=== PATIENT | female | born 1985 | race Caucasian/White ===

== ENCOUNTER 2018-06-02 02:08 | Inpatient (IN) | payer BC ==
[2018-06-02] MEDS ORDERED: Lidocaine 1% 50 ML MDV INJECT PRN (02:30)
[2018-06-02] MEDS ORDERED: Butorphanol 1 MG/ML SDV IVPUSH PRN (02:30)
[2018-06-02] MEDS ORDERED: Oxytocin/0.9 % Sodium Chloride 30 UNIT/500 ML BAG IV SCH (02:30)
[2018-06-02] MEDS ORDERED: Sodium Chloride 0.9% 2.5 ML Syringe FLUSH PRN (02:30)
[2018-06-02] MEDS ORDERED: Tranexamic Acid 1,000 MG in Sodium Chloride 0.9% 100 ML IV PRN (02:30)
[2018-06-02] MEDS ORDERED: Misoprostol 200 MCG Tab PO PRN (02:30)
[2018-06-02] MEDS ORDERED: Lactated Ringers 1,000 ML IV SCH (02:30)
[2018-06-02] MEDS ORDERED: Methylergonovine 0.2 MG/1 ML Amp IM PRN (02:30)
[2018-06-02] MEDS ORDERED: Sodium Chloride 0.9% 10 ML Syringe FLUSH PRN (02:30)
[2018-06-02] MEDS ORDERED: Water For Irrigation,Sterile 1,000 ML Container IRR PRN (02:30)
[2018-06-02] MEDS ORDERED: Carboprost Tromethamine 250 MCG/1 ML Amp IM PRN (02:30)
[2018-06-02] MEDS ORDERED: Nalbuphine 10 MG/1 ML Vial IVPUSH PRN (02:30)
--- NOTE | 2018-06-02 03:46 | PCM.DEL ---
L & D Note - General Info Date of Service: 06/02/18 Mother's Due Date: 06/21/18 - Delivery Note Labor: Spontaneous Delivery Outcome: Livebirth Infant Delivery Method: Spontaneous Vaginal Delivery-Single Presentation: Right Occiput Anterior (ADEOLA) Nuchal Cord: None Anesthesia Type: Local Anesthetic: Lidocaine (Xylocaine) 1% Plain Local Anesthetic Volume: 3cc Amniotic Fluid Description: Clear Episiotomy Type: None Laceration: 2nd Degree Suture type: Other (monocyrl 2.0) Suture size: 2-0 Placenta: Intact Cord: 3 Vessels Estimated Blood Loss: 200 Hawley: Bulb Syringe Score 1 min: 9 Score 5 min: 9 Delivery Comments (Free Text/Narrative):: Live female delivered at 258am , 9/9 weight 2900 , 3VC - General Info Date of Service: 06/02/18 - Patient Data Weight - Most Recent: 63.049 kg Lab Results Last 24 Hours: Laboratory Results - last 24 hr 06/02/18 06/02/18 Range/Units 02:43 02:43 WBC 6.99 (4.0-11.0) K/uL RBC 4.26 L (4.30-5.90) M/uL Hgb 12.1 (12.0-16.0) g/dL Hct 36.9 (36.0-46.0) % MCV 86.6 (80.0-98.0) fL MCH 28.4 (27.0-32.0) pg MCHC 32.8 (31.0-37.0) g/dL RDW Std Deviation 36.6 (28.0-62.0) fl RDW Coeff of Chele 12 (11.0-15.0) % Plt Count 141 L (150-400) K/uL MPV 11.50 (7.40-12.00) fL Blood Type A NEGATIVE Antibody Screen NEGATIVE Med Orders - Current: Current Medications Butorphanol Tartrate (Stadol) 1 mg IVPUSH Q1H PRN PRN Reason: Pain Carboprost Tromethamine (Hemabate Ds) 250 mcg IM ASDIRECTED PRN PRN Reason: Post Hemorrhage Lactated Ringer's (Ringers, Lactated) 1,000 mls @ 150 mls/hr IV ASDIRECTED DEANDRE Oxytocin/Sodium Chloride (Oxytocin 30 Unit/500 Ml-Ns) 30 unit in 500 mls @ 999 mls/hr IV TITRATE DEANDRE Last Admin: 06/02/18 03:01 Dose: 500 mls/hr Tranexamic Acid 1,000 mg/ (Sodium Chloride) 110 mls @ 660 mls/hr IV ONETIME PRN PRN Reason: Bleeding Lidocaine HCl (Xylocaine 1%) 50 ml INJECT ONETIME PRN PRN Reason: Laceration repair Last Admin: 06/02/18 02:58 Dose: 50 ml Methylergonovine Maleate (Methergine) 0.2 mg IM ASDIRECTED PRN PRN Reason: Post Hemorrhage Misoprostol (Cytotec) 200 mcg PO ONETIME PRN PRN Reason: Post Hemorrhage Nalbuphine HCl (Nubain) 10 mg IVPUSH Q1H PRN PRN Reason: Pain (severe 7-10) Sodium Chloride (Saline Flush) 10 ml FLUSH ASDIRECTED PRN PRN Reason: Keep Vein Open Sodium Chloride (Saline Flush) 2.5 ml FLUSH ASDIRECTED PRN PRN Reason: Keep Vein Open Sterile Water (Sterile Water For Irrigation) 1,000 ml IRR ASDIRECTED PRN PRN Reason: delivery Last Admin: 06/02/18 02:58 Dose: 1,000 ml - Problem List & Annotations (1) Vaginal delivery SNOMED Code(s): 657846709 Code(s): O80 - ENCOUNTER FOR FULL-TERM UNCOMPLICATED DELIVERY Status: Acute Current Visit: Yes - Problem List Review Problem List Initiated/Reviewed/Updated: Yes - My Orders Last 24 Hours: My Active Orders 06/02/18 02:13 Non Stress Test [RC] PER UNIT ROUTINE Up ad Barbi [RC] ASDIRECTED Vaginal Exam [RC] Click to Edit Vital Signs [RC] PER UNIT ROUTINE Resuscitation Status Routine 06/02/18 02:27 Patient Status [ADT] Routine 06/02/18 02:30 Heart Tones [RC] CONTINUOUS Non Stress Test [RC] PER UNIT ROUTINE May Shower [RC] ASDIRECTED Notify Provider [RC] PRN Up ad Barbi [RC] ASDIRECTED Vaginal Exam [RC] PRN Vital Signs [RC] PER UNIT ROUTINE Butorphanol [Stadol] 1 mg IVPUSH Q1H PRN Carboprost Tromethamine [Hemabate DS] 250 mcg IM ASDIRECTED PRN Lactated Ringers [Ringers, Lactated] 1,000 ml IV ASDIRECTED Lidocaine 1% [Xylocaine 1%] 50 ml INJECT ONETIME PRN Methylergonovine [Methergine] 0.2 mg IM ASDIRECTED PRN Nalbuphine [Nubain] 10 mg IVPUSH Q1H PRN Oxytocin/0.9 % Sodium Chloride [Oxytocin 30 Unit/500 ML-NS] 30 unit in 500 ml IV TITRATE Sodium Chloride 0.9% [Saline Flush] 10 ml FLUSH ASDIRECTED PRN Sodium Chloride 0.9% [Saline Flush] 2.5 ml FLUSH ASDIRECTED PRN Tranexamic Acid [Cyklokapron] 1,000 mg Sodium Chloride 0.9% [Normal Saline] 100 ml IV ONETIME Water For Irrigation,Sterile [Sterile Water for Irrigation] 1,000 ml IRR ASDIRECTED PRN miSOPROStol [Cytotec] 200 mcg PO ONETIME PRN Scalp Electrode [WOMSER] Per Unit Routine Peripheral IV Insertion Adult [OM.PC] Routine
[2018-06-02] MEDS ORDERED: Acetaminophen 500 MG Tab PO PRN ×2 (11:23→11:24)
[2018-06-02] MEDS ORDERED: Ibuprofen 400 MG Tab PO PRN (11:25)
[2018-06-02] MEDS: Ibuprofen 800 MG Tab PO PRN ×2 (11:44→23:39)
--- NOTE | 2018-06-02 17:51 | OR ---
SURGEON: GILBERT STEPHENS DATE OF PROCEDURE: 06/02/2018 PROCEDURE: Normal spontaneous vaginal delivery and repair of second-degree laceration. ANESTHESIA: None. ESTIMATED BLOOD LOSS: 200. FINDINGS: Live female delivered at 7:58 a.m. score was 9 and 9. Weight was 2900 g. BRIEF HISTORY ABOUT PATIENT: She is a 32-year-old G4, P3-0-0-3, at 37 weeks 2/7 days who came in complaining of contractions. When she came in she was found to be 7/100/ -1. She made normal labor progress. The patient became fully dilated and pushed. DESCRIPTION OF PROCEDURE: The patient was to push, she was encouraged to push. She delivered the head, followed subsequently by the anterior and posterior shoulder and the body of the infant was delivered. Delayed cord clamping was observed. The cord was clamped and cut. The placenta was delivered via controlled cord traction. The perineum was inspected and was noted to have second-degree laceration. Laceration was repaired with 2-0 Monocryl in a continuous fashion. Inspection of the perineum showed intact perineum. The patient was left in Labor and Delivery in stable condition. SHANI POSEY /[id number] MTDTim
[2018-06-02] MEDS ORDERED: Docusate Sodium 100 MG Cap PO PRN (23:38)
--- NOTE | 2018-06-03 08:17 | PCM.PNPP ---
<Angelica Owens - Last Filed: 06/03/18 08:13> - General Info Date of Service: 06/03/18 Functional Status: Reports: Pain Controlled, Tolerating Diet, Ambulating, Urinating - Review of Systems General: Denies: Fever, Weakness, Fatigue Pulmonary: Denies: Shortness of Breath, Pleuritic Chest Pain, Cough Cardiovascular: Denies: Chest Pain, Palpitations, Dyspnea on Exertion Gastrointestinal: Denies: Abdominal Pain Genitourinary: Denies: Dysuria - General Info Date of Service: 06/03/18 - Patient Data Vital Signs - Most Recent: Last Vital Signs Temp 36.4 C 06/03/18 04:00 Pulse 88 06/03/18 07:00 Resp 16 06/03/18 07:00 BP 101/63 06/03/18 07:00 Pulse Ox 100 06/03/18 07:00 Weight - Most Recent: 63.049 kg Lab Results - Last 24 Hours: Laboratory Results - last 24 hr 06/02/18 Range/Units 02:58 Cord VBG pH 7.496 H (7.25-7.45) Cord VBG Base Excess -2 (-10--2) Med Orders - Current: Current Medications Acetaminophen (Tylenol Extra Strength) 500 mg PO Q6H PRN PRN Reason: Pain Acetaminophen (Tylenol Extra Strength) 1,000 mg PO Q6H PRN PRN Reason: Pain Carboprost Tromethamine (Hemabate Ds) 250 mcg IM ASDIRECTED PRN PRN Reason: Post Hemorrhage Docusate Sodium (Colace) 100 mg PO BID PRN PRN Reason: Constipation Last Admin: 06/02/18 23:41 Dose: 100 mg Oxytocin/Sodium Chloride (Oxytocin 30 Unit/500 Ml-Ns) 30 unit in 500 mls @ 999 mls/hr IV TITRATE DEANDRE Last Admin: 06/02/18 03:01 Dose: 500 mls/hr Tranexamic Acid 1,000 mg/ (Sodium Chloride) 110 mls @ 660 mls/hr IV ONETIME PRN PRN Reason: Bleeding Ibuprofen (Motrin) 400 mg PO Q6H PRN PRN Reason: Pain Ibuprofen (Motrin) 800 mg PO Q6H PRN PRN Reason: Pain Last Admin: 06/02/18 23:39 Dose: 800 mg Misoprostol (Cytotec) 200 mcg PO ONETIME PRN PRN Reason: Post Hemorrhage Sodium Chloride (Saline Flush) 10 ml FLUSH ASDIRECTED PRN PRN Reason: Keep Vein Open Sodium Chloride (Saline Flush) 2.5 ml FLUSH ASDIRECTED PRN PRN Reason: Keep Vein Open Sterile Water (Sterile Water For Irrigation) 1,000 ml IRR ASDIRECTED PRN PRN Reason: delivery Last Admin: 06/02/18 02:58 Dose: 1,000 ml Discontinued Medications Butorphanol Tartrate (Stadol) 1 mg IVPUSH Q1H PRN PRN Reason: Pain Lactated Ringer's (Ringers, Lactated) 1,000 mls @ 150 mls/hr IV ASDIRECTED DEANDRE Lidocaine HCl (Xylocaine 1%) 50 ml INJECT ONETIME PRN PRN Reason: Laceration repair Last Admin: 06/02/18 02:58 Dose: 50 ml Methylergonovine Maleate (Methergine) 0.2 mg IM ASDIRECTED PRN PRN Reason: Post Hemorrhage Nalbuphine HCl (Nubain) 10 mg IVPUSH Q1H PRN PRN Reason: Pain (severe 7-10) - Interaction Disposition, : [place] in Room with Family Support Person: - Recovery Exam Fundal Tone: Firm Fundal Level: 1 Fingerbreadths Below Umbilicus Fundal Placement: Midline Lochia Amount: Scant Lochia Color: Rubra/Red Perineum Description: Intact, Minimal Bruising/Swelling Other Perinuem Description: 2nd degree laceration with repair Episiotomy/Laceration: Approximated Bladder Status: Voiding Urinary Elimination: Voided - Exam General: Alert, Oriented Neck: Supple Lungs: Clear to Auscultation, Normal Respiratory Effort Cardiovascular: Regular Rate, Regular Rhythm GI/Abdominal Exam: Normal Bowel Sounds, Soft, Non-Tender, No Distention Extremities: Normal Inspection, Non-Tender, Normal Capillary Refill, Pedal Edema (trace) Skin: Warm, Dry, Intact - Problem List Review Problem List Initiated/Reviewed/Updated: Yes - Assessment Assessment:: PPD #1 s/p . Minimal pain and lochia. Breast feeding well. Discharge home today. - Plan Plan:: Discharge home today. Pelvic rest for 6 weeks. Continue PNV while breast feeding. Can use OTC ibuprofen/tylenol as needed for pain. Instructed patient to call if she develops fever greater than 101 or bleeding through a large pad an hour. F/U with [facility] in 6 weeks. <Gina Castanon - Last Filed: 06/03/18 09:03> - Patient Data Vital Signs - Most Recent: Last Vital Signs Temp 36.4 C 06/03/18 04:00 Pulse 88 06/03/18 07:00 Resp 16 06/03/18 07:00 BP 101/63 06/03/18 07:00 Pulse Ox 100 06/03/18 07:00 Lab Results - Last 24 Hours: Laboratory Results - last 24 hr 06/02/18 Range/Units 02:58 Cord VBG pH 7.496 H (7.25-7.45) Cord VBG Base Excess -2 (-10--2) Med Orders - Current: Current Medications Acetaminophen (Tylenol Extra Strength) 500 mg PO Q6H PRN PRN Reason: Pain Acetaminophen (Tylenol Extra Strength) 1,000 mg PO Q6H PRN PRN Reason: Pain Carboprost Tromethamine (Hemabate Ds) 250 mcg IM ASDIRECTED PRN PRN Reason: Post Hemorrhage Docusate Sodium (Colace) 100 mg PO BID PRN PRN Reason: Constipation Last Admin: 06/02/18 23:41 Dose: 100 mg Oxytocin/Sodium Chloride (Oxytocin 30 Unit/500 Ml-Ns) 30 unit in 500 mls @ 999 mls/hr IV TITRATE DEANDRE Last Admin: 06/02/18 03:01 Dose: 500 mls/hr Tranexamic Acid 1,000 mg/ (Sodium Chloride) 110 mls @ 660 mls/hr IV ONETIME PRN PRN Reason: Bleeding Ibuprofen (Motrin) 400 mg PO Q6H PRN PRN Reason: Pain Ibuprofen (Motrin) 800 mg PO Q6H PRN PRN Reason: Pain Last Admin: 06/02/18 23:39 Dose: 800 mg Misoprostol (Cytotec) 200 mcg PO ONETIME PRN PRN Reason: Post Hemorrhage Sodium Chloride (Saline Flush) 10 ml FLUSH ASDIRECTED PRN PRN Reason: Keep Vein Open Sodium Chloride (Saline Flush) 2.5 ml FLUSH ASDIRECTED PRN PRN Reason: Keep Vein Open Sterile Water (Sterile Water For Irrigation) 1,000 ml IRR ASDIRECTED PRN PRN Reason: delivery Last Admin: 06/02/18 02:58 Dose: 1,000 ml Discontinued Medications Butorphanol Tartrate (Stadol) 1 mg IVPUSH Q1H PRN PRN Reason: Pain Lactated Ringer's (Ringers, Lactated) 1,000 mls @ 150 mls/hr IV ASDIRECTED DEANDRE Lidocaine HCl (Xylocaine 1%) 50 ml INJECT ONETIME PRN PRN Reason: Laceration repair Last Admin: 06/02/18 02:58 Dose: 50 ml Methylergonovine Maleate (Methergine) 0.2 mg IM ASDIRECTED PRN PRN Reason: Post Hemorrhage Nalbuphine HCl (Nubain) 10 mg IVPUSH Q1H PRN PRN Reason: Pain (severe 7-10) - Problem List & Annotations (1) Vaginal delivery SNOMED Code(s): 005417739 Code(s): O80 - ENCOUNTER FOR FULL-TERM UNCOMPLICATED DELIVERY Status: Acute Current Visit: Yes - Problem List Review Problem List Initiated/Reviewed/Updated: Yes - Assessment Assessment:: Patient was seen and examined by me and I agree with above.
== END 2018-06-03 10:40 | disposition home or self-care (01) | DRG 560 ==
LOC: MW.OBCHECK 02:08 → MW.OB 02:10 → MW.OBCHECK 02:27 → MW.OB 02:27 → OBSVTOIN 02:58
PROVIDERS: ADMIT Obstetrics & Gynecology; ATTEND Obstetrics & Gynecology
PROC: 10E0XZZ Delivery of Products of Conception, External Approach (ICD-10-PCS; principal; 2018-06-02)
PROC: 0KQM0ZZ Repair Perineum Muscle, Open Approach (ICD-10-PCS; 2018-06-02)
DX: O70.1 Second degree perineal laceration during delivery (principal); Z3A.37 37 weeks gestation of pregnancy; Z37.0 Single live birth
CPT/HCPCS: 36415; 59025; 59409; 82803; 85027; 86850; 86900; 86901; A9270-GY; J2590

== ENCOUNTER 2018-10-24 17:49 | Emergency (ER) | payer BC ==
--- NOTE | 2018-10-24 18:44 | CR ---
Indication: Pain after fall Technique: Right elbow 3 views Comparison: None Findings: Bones: Alignment is normal. No fractures or bone lesions. Joint spaces: Unremarkable. No sign of joint effusion. Soft tissues: Dorsal soft tissue swelling. Impression: Dorsal soft tissue swelling without evidence of fracture or elbow effusion. Dictated by Sivakumar Calix MD @ Oct 24 2018 6:42PM Signed by Dr. Sivakumar Calix @ Oct 24 2018 6:43PM
--- NOTE | 2018-10-24 18:48 | EDM.PDOC ---
ED HPI GENERAL MEDICAL PROBLEM - General Chief Complaint: Upper Extremity Injury/Pain Stated Complaint: FELL DOWN STAIRS AND HURT R ELBOW Time Seen by Provider: 10/24/18 18:05 Source of Information: Reports: Patient History Limitations: Reports: No Limitations - History of Present Illness INITIAL COMMENTS - FREE TEXT/NARRATIVE: HISTORY AND PHYSICAL: History of present illness: Patient is a 32-year-old female who fell landing on her right elbow approximately 4 hours prior to arrival. She states she has noticed some soft tissue swelling and bruising and was concerned she may have a fracture. She denies hitting her head or any loss of consciousness. She does have range of motion although this does cause pain. Denies any numbness or tingling to the distal extremity. Review of systems: As per history of present illness and below otherwise all systems reviewed and negative. Past medical history: As per history of present illness and as reviewed below otherwise noncontributory. Surgical history: As per history of present illness and as reviewed below otherwise noncontributory. Social history: See social history for further information Family history: As per history of present illness and as reviewed below otherwise noncontributory. Physical exam: General: Well-developed and well-nourished 32-year-old female. Alert and oriented. Nontoxic appearing and in no acute distress. HEENT: Atraumatic, normocephalic, pupils equal and reactive bilaterally, negative for conjunctival pallor or scleral icterus, mucous membranes moist, TMs normal bilaterally, throat clear, neck supple, nontender, trachea midline. No drooling or trismus noted. No meningeal signs. No hot potato voice noted. Lungs: Clear to auscultation, breath sounds equal bilaterally, chest nontender. Heart: S1S2, regular rate and rhythm without overt murmur Abdomen: Soft, nondistended, nontender. Negative for masses or hepatosplenomegaly. Negative for costovertebral tenderness. Pelvis: Stable nontender. Genitourinary: Deferred. Rectal: Deferred. Skin: Intact, warm, dry. No lesions or rashes noted. Extremities: Moves all extremities per self without difficulty or deficits, mild pain with palpation of the right elbow with mild soft tissue swelling, strong radial pulse, strong and equal grasps bilaterally. Neurovascular unremarkable. Neuro: Awake, alert, oriented. Cranial nerves II through XII unremarkable. Cerebellum unremarkable. Motor and sensory unremarkable throughout. Exam nonfocal. Notes: X-ray shows no evidence of fracture or dislocation. There is some mild soft tissue swelling. Did offer her a sling. She states she would rather have an Marlo wrap, agreeable for outpatient follow-up with the orthopedic provider. Supportive care measures were reviewed and discussed. She denies any further questions or concerns at this time. Diagnostics: X-ray Therapeutics: Marlo wrap Prescription: None Impression: Right Elbow Contusion Plan: 1. Rest, ice, elevate the extremity as able. Please use the sling for comfort. 2. Tylenol and/or ibuprofen as needed for pain management. 3. Please follow-up with the orthopedic provider and/or your primary care provider in the next 1-2 days. Return to the ED as needed and as discussed Definitive disposition and diagnosis as appropriate pending reevaluation and review of above. right elbow Pain Score (Numeric/FACES): 4 - Related Data Allergies Allergy/AdvReac Type Severity Reaction Status Date / Time No Known Allergies Allergy Verified 05/29/18 10:49 Home Meds: Home Meds Vits96/Iron Fum/Folic [ Tablet] 1 tab PO DAILY 05/29/18 [ History] Past Medical History - Past Health History Medical/Surgical History: Denies Medical/Surgical History [employer] History: Reports: Psychiatric History: Reports: Other (See Below) Other Psychiatric History: History of PPD. - Infectious Disease History Infectious Disease History: Reports: Chicken Pox, Measles - Past Surgical History HEENT Surgical History: Reports: Oral Surgery Social & Family History - Family History Cardiac: Reports: High Cholesterol, Hypertension OBGYN: Reports: Neurological: Reports: Migraines Oncologic: Reports: Breast, Prostate - Tobacco Use Smoking Status *Q: Never Smoker - Caffeine Use Caffeine Use: Reports: Coffee - Recreational Drug Use Recreational Drug Use: No Review of Systems - Review of Systems Review Of Systems: ROS reveals no pertinent complaints other than HPI. ED EXAM, GENERAL - Physical Exam Exam: See Below (See dictation) Course - Vital Signs Last Recorded V/S: Last Vital Signs Temp Pulse 109 H 10/24/18 18:07 Resp 16 10/24/18 18:07 BP 114/69 10/24/18 18:07 Pulse Ox 97 10/24/18 18:07 - Orders/Labs/Meds Orders: Active Orders 24 hr Category Date Time Status DME for Discharge [COMM] Stat Oth 10/24/18 18:49 Ordered Departure - Departure Time of Disposition: 18:49 Disposition: Home, Self-Care 01 Clinical Impression: Elbow contusion Qualifiers: Encounter type: initial encounter Laterality: right Qualified Code(s): S50.01XA - Contusion of right elbow, initial encounter - Discharge Information Instructions: Elbow Contusion, [id number] Referrals: PCP,None [Primary Care Provider] - Forms: ED Department Discharge Additional Instructions: The following information is given to patients seen in the emergency department who are being discharged to home. This information is to outline your options for follow-up care. We provide all patients seen in our emergency department with a follow-up referral. The need for follow-up, as well as the timing and circumstances, are variable depending upon the specifics of your emergency department visit. If you don't have a primary care physician on staff, we will provide you with a referral. We always advise you to contact your personal physician following an emergency department visit to inform them of the circumstance of the visit and for follow-up with them and/or the need for any referrals to a consulting specialist. The emergency department will also refer you to a specialist when appropriate. This referral assures that you have the opportunity for follow-up care with a specialist. All of these measure are taken in an effort to provide you with optimal care, which includes your follow-up. Under all circumstances we always encourage you to contact your private physician who remains a resource for coordinating your care. When calling for follow-up care, please make the office aware that this follow-up is from your recent emergency room visit. If for any reason you are refused follow-up, please contact the [facility] Emergency Department at and asked to speak to the emergency department charge nurse. [facility] Primary Care [address] [place] [id number] [facility] [address] [place] [address] [facility] Specialty Care - Orthopedic Clinic Professional [address], [address] [place] [address] 1. Rest, ice, elevate the extremity as able. Please use the marlo wrap for comfort. 2. Tylenol and/or ibuprofen as needed for pain management. 3. Please follow-up with the orthopedic provider and/or your primary care provider in the next 1-2 days. Return to the ED as needed and as discussed - My Orders Last 24 Hours: My Active Orders 10/24/18 18:49 DME for Discharge [COMM] Stat - Assessment/Plan Last 24 Hours: My Active Orders 10/24/18 18:49 DME for Discharge [COMM] Stat
== END 2018-10-24 19:20 | disposition home or self-care (01) ==
LOC: MW.ED 17:49
DX: S50.01XA Contusion of right elbow, initial encounter (principal); W10.8XXA Fall (on) (from) other stairs and steps, initial encounter
CPT/HCPCS: 73080-26-RT; 73080-RT; 99283